=== PATIENT | male | born 1930 | race Caucasian/White ===

== ENCOUNTER 2017-01-22 05:43 | Day surgery (SDC) | payer OTHER ==
[~2017-01-22] VITALS: Ht 182.9 cm; Wt 102.0 kg
[~2017-01-22 05:43] MED LIST: ACET-1600 PO; AMLO10TA2 PO; AMLO2.5T PO; AMLO2.5T2 PO; AMLO5TAB2 PO; ASCO500T8 PO; ASPI325T80 PO; CIPR500T87 PO; LATA2.5D3 EACHEYE; LOSA1TAB16 PO; LOSA50TA6 PO; MULT-658 PO; OXYC-302 PO; TAMS-11 PO
[2017-01-22 06:02] VITALS: BP 159/77
[2017-01-22] MEDS ORDERED: LACTATED RINGERS 1,000 ML IV SCH (06:04)
[2017-01-22] MEDS ORDERED: SODIUM CHLORIDE 0.9% 1,000 ML IV SCH (06:28)
[2017-01-22] MEDS ORDERED: METOCLOPRAMIDE 5 MG/ML, 2ML ONE (07:02)
[2017-01-22] MEDS ORDERED: ONDANSETRON 2MG/ML, 2ML ONE (07:02)
[2017-01-22] MEDS ORDERED: PROPOFOL 10 MG/ML, 20ML ONE (07:02)
[2017-01-22] MEDS ORDERED: DEXAMETHASONE 4 MG/ML, 1ML ONE (07:02)
[2017-01-22] MEDS ORDERED: FENTANYL PF 100 MCG/2ML ONE ×3 (07:06→08:17)
[2017-01-22] MEDS ORDERED: METOPROLOL 1 MG/ML, 5ML IV PRN (07:30)
[2017-01-22] MEDS ORDERED: LABETALOL 5MG/ML, 20ML IV PRN (07:30)
[2017-01-22] MEDS ORDERED: HYDROmorphone 1 MG/ML, 1ML IV PRN (07:30)
[2017-01-22] MEDS ORDERED: ACETAMINOPHEN 325 MG TABLET PO PRN (07:30)
[2017-01-22] MEDS ORDERED: ALBUTEROL SULFATE 2.5 MG/3 ML NPPB PRN (07:30)
[2017-01-22] MEDS ORDERED: hydrALAzine 20 MG/ML, 1ML IV PRN (07:30)
[2017-01-22] MEDS ORDERED: ONDANSETRON 2MG/ML, 2ML IVPush PRN (07:30)
[2017-01-22] MEDS ORDERED: OXYcodone 5 MG/5 ML ORAL.SOL UDC PO PRN (07:30)
[2017-01-22] MEDS ORDERED: EPHEDRINE 50 MG/ML, 1ML IVPush PRN (07:30)
[2017-01-22] MEDS ORDERED: OMNIPAQUE 350 MG/ML, 50 ML BOTTLE INJ ONE (07:46)
[2017-01-22] MEDS ORDERED: PHENAZOPYRIDINE 200 MG TABLET PO PRN (08:00)
[2017-01-22] MEDS ORDERED: KETOROLAC 30 MG/1 ML IV PRN (08:00)
[2017-01-22] MEDS ORDERED: OPIUM/BELLADONNA SUPP.RECT 16.2-60 MG PR PRN (08:00)
[2017-01-22] MEDS ORDERED: ONDANSETRON 2MG/ML, 2ML IV PRN (08:00)
[2017-01-22] MEDS ORDERED: OXYcodone/APAP 5/325MG TABLET PO PRN (08:00)
[2017-01-22] MEDS ORDERED: OXYcodone 5 MG/5 ML ORAL.SOL UDC ONE (08:17)
[2017-01-22] MEDS: FENTANYL PF 100 MCG/2ML IV PRN ×2 (08:21→08:36)
[2017-01-22] MEDS ORDERED: PHENAZOPYRIDINE 200 MG TABLET ONE (08:22)
[2017-01-22] MEDS ORDERED: KETOROLAC 30 MG/1 ML ONE (08:25)
== END 2017-01-22 14:10 | disposition home or self-care (01) ==
LOC: OUT 05:43
PROVIDERS: ATTEND Urology
DX: C67.6 Malignant neoplasm of ureteric orifice (principal); N13.5 Crossing vessel and stricture of ureter without hydronephrosis; I12.9 Hypertensive chronic kidney disease with stage 1 through stage 4 chronic kidney disease, or unspecified chronic kidney disease; N18.9 Chronic kidney disease, unspecified; Z46.6 Encounter for fitting and adjustment of urinary device; N40.1 Benign prostatic hyperplasia with lower urinary tract symptoms; N13.8 Other obstructive and reflux uropathy; Z98.49 Cataract extraction status, unspecified eye; Z96.1 Presence of intraocular lens; Z87.891 Personal history of nicotine dependence; Z83.3 Family history of diabetes mellitus; Z82.49 Family history of ischemic heart disease and other diseases of the circulatory system; Z84.1 Family history of disorders of kidney and ureter; Z82.0 Family history of epilepsy and other diseases of the nervous system
CPT/HCPCS: 52234; 52332; 74420; 88305; C1726; C1769; C2617; J1100; J1885; J2405; J2704; J2765; J3010; J7030; Q9967

== ENCOUNTER → 2017-02-24 | Outpatient (CLI) | payer OTHER | END | disposition home or self-care (01) | LOC: PETCFH 08:27 | PROVIDERS: ATTEND Urology | DX: C67.0 Malignant neoplasm of trigone of bladder (principal); C66.9 Malignant neoplasm of unspecified ureter; I25.10 Atherosclerotic heart disease of native coronary artery without angina pectoris; R59.9 Enlarged lymph nodes, unspecified; J43.2 Centrilobular emphysema | CPT/HCPCS: 78815; A9552 ==

== ENCOUNTER → 2017-03-03 | Outpatient (CLI) | payer OTHER | END | disposition home or self-care (01) | LOC: PETCFH 09:25 | PROVIDERS: ATTEND Urology | DX: C66.9 Malignant neoplasm of unspecified ureter (principal); C67.0 Malignant neoplasm of trigone of bladder | CPT/HCPCS: 78306; A9503 ==

== ENCOUNTER → 2017-04-30 | Outpatient (CLI) | payer OTHER ==
[~2017-04-30] MED LIST changes: +DORZ10DR3 LEFTEYE
[2017-04-30 11:48] LABS: PATH.CAST-FLAG NOT PRESENT; SPERM-FLAG NOT PRESENT; SRC-FLAG NOT PRESENT; XTAL-FLAG NOT PRESENT; YLC-FLAG NOT PRESENT
[2017-04-30 12:05] LABS: ASPARTATE AMINO TRANSFERASE 10 U/L (15-37); BLOOD UREA NITROGEN 37 mg/dL (7-18)
== END | disposition home or self-care (01) ==
LOC: STAR 10:18
PROVIDERS: ATTEND Urology
DX: Z01.818 Encounter for other preprocedural examination (principal); C67.9 Malignant neoplasm of bladder, unspecified
CPT/HCPCS: 36415; 80053; 81001; 85025; 87086; 93005

== ENCOUNTER 2017-05-13 10:35 | Inpatient (IN) | payer OTHER ==
[~2017-05-13] VITALS: Ht 182.9 cm; Wt 96.0 kg
[2017-05-13] MEDS ORDERED: LACTATED RINGERS 1,000 ML IV SCH (10:59)
[2017-05-13] MEDS ORDERED: THROMBIN 5,000 UNIT VIAL TP ONE (11:56)
[2017-05-13] MEDS ORDERED: MIDAZOLAM 1 MG/ML, 2ML ONE (12:29)
[2017-05-13] MEDS ORDERED: HYDROmorphone 1 MG/ML, 1ML ONE (12:29)
[2017-05-13] MEDS ORDERED: FENTANYL PF 250 MCG/5ML ONE (12:29)
[2017-05-13] MEDS ORDERED: ALBUMIN HUMAN 5% 500 ML ONE (13:05)
[2017-05-13] MEDS ORDERED: GLYCOPYRROLATE 0.2MG/1ML ONE (13:07)
[2017-05-13] MEDS ORDERED: PROPOFOL 10 MG/ML, 20ML ONE (13:07)
[2017-05-13] MEDS ORDERED: ONDANSETRON 2MG/ML, 2ML ONE (13:07)
[2017-05-13] MEDS ORDERED: NEOSTIGMINE 1 MG/ML, 10ML ONE (13:07)
[2017-05-13] MEDS ORDERED: ROCURONIUM 10 MG/ML ONE (13:07)
[2017-05-13] MEDS ORDERED: DEXAMETHASONE 4 MG/ML, 1ML ONE (13:07)
[2017-05-13] MEDS ORDERED: PHENYLEPHRINE 10 MG/ML ONE (13:07)
[2017-05-13] MEDS ORDERED: SUCCINYLCHOLINE 20 MG/ML, 10ML ONE (13:07)
[2017-05-13] MEDS ORDERED: OMNIPAQUE 350 MG/ML, 50 ML BOTTLE IV ONE (13:45)
[2017-05-13] MEDS ORDERED: OMNIPAQUE 350 MG/ML, 50 ML BOTTLE ONE (14:14)
[2017-05-13] MEDS ORDERED: BUPIVACAINE 0.25% ONE (14:27)
[2017-05-13] MEDS ORDERED: BUPIVACAINE/PF-EPI 0.5% 1:200K ONE (18:51)
[2017-05-13] MEDS ORDERED: BUPIVACAINE/PF 0.25% ONE (18:52)
[2017-05-13] MEDS ORDERED: HYDROmorphone 1 MG/ML, 1ML IV PRN ×2 (19:00→22:00)
[2017-05-13] MEDS ORDERED: FENTANYL PF 100 MCG/2ML IV PRN (19:00)
[2017-05-13] MEDS ORDERED: MIDAZOLAM 1 MG/ML, 2ML IV PRN (19:00)
[2017-05-13] MEDS ORDERED: hydrALAzine 20 MG/ML, 1ML IV PRN (19:00)
[2017-05-13] MEDS ORDERED: ONDANSETRON 2MG/ML, 2ML IVPush PRN (19:00)
[2017-05-13] MEDS ORDERED: ALBUTEROL/IPRATROPIUM 2.5MG/0.5MG, 3 ML NPPB PRN (19:00)
[2017-05-13] MEDS ORDERED: LABETALOL 5MG/ML, 20ML IV PRN (19:00)
[2017-05-13] MEDS ORDERED: EPHEDRINE 50 MG/ML, 1ML IVPush PRN ×2 (19:00→22:00)
[2017-05-13] MEDS ORDERED: MEPERIDINE/PF 25MG/0.5ML IVPush PRN (19:00)
[2017-05-13] MEDS ORDERED: PROMETHAZINE 25 MG/ML, 1ML IV PRN (19:00)
[2017-05-13] MEDS ORDERED: FENTANYL PF 100 MCG/2ML ONE (19:38)
[2017-05-13] MEDS: HYDROmorphone 5 MG, BUPIVACAINE/PF 0.5%, 30ML 62.5 ML in SODIUM CHLORIDE 0.9% 182.5 ML EPIDCONT SCH (19:57)
[2017-05-13] MEDS ORDERED: NALBUPHINE 10 MG/ML, 1ML IV PRN (22:00)
[2017-05-13] MEDS ORDERED: NALOXONE 0.4 MG/ML, 1ML IV PRN (22:00)
[2017-05-13] MEDS ORDERED: HEPARIN 5,000 UNITS/ML, 1ML SQ SCH (22:00)
[2017-05-13] MEDS ORDERED: ONDANSETRON 2MG/ML, 2ML IV PRN (22:00)
[2017-05-13] MEDS ORDERED: DO NOT GIVE MC SCH (22:00)
[2017-05-13] MEDS: POTASSIUM CHLORIDE 20 MEQ in D5%-0.45% NACL 1,000 ML IV SCH (22:13)
[2017-05-13] MEDS: CEFTRIAXONE PMX 2GM/50ML 50 ML IV SCH (22:34)
[2017-05-14 02:41] VITALS: BP 117/64
[2017-05-14] MEDS: POTASSIUM CHLORIDE 20 MEQ in D5%-0.45% NACL 1,000 ML IV SCH ×3 (06:40→23:40)
[2017-05-14 06:44] LABS: BLOOD UREA NITROGEN 31 mg/dL (7-18)
[2017-05-14 07:25] VITALS: BP 108/62
[2017-05-14] MEDS: LOSARTAN 50MG TABLET PO SCH (08:37)
[2017-05-14] MEDS: HYDROCHLOROTHIAZIDE 12.5 MG CAPSULE PO SCH (08:38)
[2017-05-14] MEDS: DORZOLAMIDE OPHTH 2%, 10ML LEFTEYE SCH ×2 (08:38→22:46)
[2017-05-14] MEDS ORDERED: HEPARIN 5,000 UNITS/ML, 1ML SQ SCH ×2 (13:00→18:00)
[2017-05-14] MEDS ORDERED: DO NOT GIVE MC SCH (13:04)
[2017-05-14] MEDS: HEPARIN 5,000 UNITS/ML, 1ML SQ SCH ×2 (13:31→22:21)
[2017-05-14 14:12] VITALS: BP 120/57
[2017-05-14 19:06] VITALS: BP 131/66
[2017-05-14] MEDS: HYDROmorphone 5 MG, BUPIVACAINE/PF 0.5%, 30ML 62.5 ML in SODIUM CHLORIDE 0.9% 182.5 ML EPIDCONT SCH (21:03)
[2017-05-14] MEDS: AMLODIPINE 5 MG TABLET PO SCH (22:21)
[2017-05-14] MEDS: CEFTRIAXONE PMX 2GM/50ML 50 ML IV SCH (22:21)
[2017-05-14] MEDS: LATANOPROST OPHTH 0.005%, 2.5ML EACHEYE SCH (22:46)
[2017-05-15 00:14] VITALS: BP 141/62
[2017-05-15 04:00] VITALS: BP 147/68
[2017-05-15 05:27] LABS: BLOOD UREA NITROGEN 27 mg/dL (7-18)
[2017-05-15] MEDS: HEPARIN 5,000 UNITS/ML, 1ML SQ SCH ×3 (06:14→22:37)
[2017-05-15] MEDS: POTASSIUM CHLORIDE 20 MEQ in D5%-0.45% NACL 1,000 ML IV SCH ×3 (06:47→22:34)
[2017-05-15 08:02] VITALS: BP 132/67
[2017-05-15] MEDS: DORZOLAMIDE OPHTH 2%, 10ML LEFTEYE SCH ×2 (10:01→21:48)
[2017-05-15] MEDS: LOSARTAN 50MG TABLET PO SCH (10:02)
[2017-05-15] MEDS: AMLODIPINE 5 MG TABLET PO SCH ×2 (10:02→21:48)
[2017-05-15] MEDS: HYDROCHLOROTHIAZIDE 12.5 MG CAPSULE PO SCH (10:02)
[2017-05-15] MEDS: BUPIVACAINE/PF 0.5%, 30ML 62.5 ML in SODIUM CHLORIDE 0.9% 187.5 ML EPIDCONT SCH (11:04)
[2017-05-15 13:28] VITALS: BP 133/75
[2017-05-15 19:24] VITALS: BP 131/78
[2017-05-15] MEDS: LATANOPROST OPHTH 0.005%, 2.5ML EACHEYE SCH (21:48)
[2017-05-15] MEDS: CEFTRIAXONE PMX 2GM/50ML 50 ML IV SCH (22:34)
[2017-05-15 23:28] VITALS: BP 123/70
[2017-05-16 02:31] VITALS: BP 151/82
[2017-05-16 05:45] LABS: BLOOD UREA NITROGEN 24 mg/dL (7-18)
[2017-05-16 06:33] VITALS: BP 132/78
[2017-05-16] MEDS: HEPARIN 5,000 UNITS/ML, 1ML SQ SCH ×3 (06:42→23:34)
[2017-05-16] MEDS: POTASSIUM CHLORIDE 20 MEQ in D5%-0.45% NACL 1,000 ML IV SCH ×3 (06:42→23:34)
[2017-05-16] MEDS: DORZOLAMIDE OPHTH 2%, 10ML LEFTEYE SCH ×2 (09:22→21:20)
[2017-05-16] MEDS: HYDROCHLOROTHIAZIDE 12.5 MG CAPSULE PO SCH (09:23)
[2017-05-16] MEDS: LOSARTAN 50MG TABLET PO SCH (09:23)
[2017-05-16] MEDS: BUPIVACAINE/PF 0.5%, 30ML 62.5 ML in SODIUM CHLORIDE 0.9% 187.5 ML EPIDCONT SCH (11:10)
[2017-05-16 12:24] VITALS: BP 153/85
[2017-05-16] MEDS: LATANOPROST OPHTH 0.005%, 2.5ML EACHEYE SCH (21:21)
[2017-05-16] MEDS: AMLODIPINE 5 MG TABLET PO SCH (21:22)
[2017-05-16 21:30] VITALS: BP 143/73
[2017-05-16] MEDS: CEFTRIAXONE PMX 2GM/50ML 50 ML IV SCH (22:56)
[2017-05-17 03:12] VITALS: BP 123/88
[2017-05-17 05:59] LABS: BLOOD UREA NITROGEN 20 mg/dL (7-18)
[2017-05-17] MEDS: HEPARIN 5,000 UNITS/ML, 1ML SQ SCH ×3 (06:43→22:36)
[2017-05-17] MEDS: HYDROCHLOROTHIAZIDE 12.5 MG CAPSULE PO SCH (08:42)
[2017-05-17] MEDS: DORZOLAMIDE OPHTH 2%, 10ML LEFTEYE SCH ×2 (08:42→22:37)
[2017-05-17] MEDS: POTASSIUM CHLORIDE 20 MEQ in D5%-0.45% NACL 1,000 ML IV SCH ×2 (08:43→18:20)
[2017-05-17] MEDS: LOSARTAN 50MG TABLET PO SCH (08:43)
[2017-05-17] MEDS ORDERED: BUPIVACAINE/PF 0.5%, 30ML 62.5 ML in SODIUM CHLORIDE 0.9% 187.5 ML EPIDCONT SCH (12:38)
[2017-05-17 14:42] VITALS: BP 119/72
[2017-05-17] MEDS ORDERED: POLYETHYLENE GLYCOL 17 GM PACKET NG PRN ×2 (18:00→20:00)
[2017-05-17] MEDS ORDERED: OXYcodone/APAP 5/325MG TABLET PO PRN (18:00)
[2017-05-17] MEDS ORDERED: BISACODYL 10 MG SUPP PR PRN ×2 (18:00→20:00)
[2017-05-17 19:20] VITALS: BP 128/76
[2017-05-17] MEDS ORDERED: DO NOT GIVE MC SCH (20:00)
[2017-05-17] MEDS: CEFTRIAXONE PMX 2GM/50ML 50 ML IV SCH (22:36)
[2017-05-17] MEDS: LATANOPROST OPHTH 0.005%, 2.5ML EACHEYE SCH (22:36)
[2017-05-17] MEDS: AMLODIPINE 5 MG TABLET PO SCH (22:36)
[2017-05-18] MEDS: POTASSIUM CHLORIDE 20 MEQ in D5%-0.45% NACL 1,000 ML IV SCH ×3 (01:23→22:29)
[2017-05-18 03:15] VITALS: BP 130/73
[2017-05-18] MEDS: HEPARIN 5,000 UNITS/ML, 1ML SQ SCH ×3 (05:14→23:00)
[2017-05-18 06:01] LABS: BLOOD UREA NITROGEN 18 mg/dL (7-18)
[2017-05-18] MEDS: HYDROCHLOROTHIAZIDE 12.5 MG CAPSULE PO SCH (08:46)
[2017-05-18] MEDS: DORZOLAMIDE OPHTH 2%, 10ML LEFTEYE SCH ×2 (08:47→22:30)
[2017-05-18] MEDS: LOSARTAN 50MG TABLET PO SCH (08:47)
[2017-05-18 14:00] VITALS: BP 130/71
[2017-05-18 20:08] VITALS: BP 117/73
[2017-05-18] MEDS: AMLODIPINE 5 MG TABLET PO SCH (22:28)
[2017-05-18] MEDS: CEFTRIAXONE PMX 2GM/50ML 50 ML IV SCH (22:28)
[2017-05-18] MEDS: LATANOPROST OPHTH 0.005%, 2.5ML EACHEYE SCH (22:29)
[2017-05-19 01:18] VITALS: BP 118/67
[2017-05-19] MEDS: POTASSIUM CHLORIDE 20 MEQ in D5%-0.45% NACL 1,000 ML IV SCH ×3 (01:20→15:42)
[2017-05-19 05:06] LABS: BLOOD UREA NITROGEN 21 mg/dL (7-18)
[2017-05-19] MEDS: HEPARIN 5,000 UNITS/ML, 1ML SQ SCH ×3 (06:44→23:11)
[2017-05-19 07:31] VITALS: BP 120/70
[2017-05-19] MEDS: HYDROCHLOROTHIAZIDE 12.5 MG CAPSULE PO SCH (08:29)
[2017-05-19] MEDS: LOSARTAN 50MG TABLET PO SCH (08:30)
[2017-05-19] MEDS: DORZOLAMIDE OPHTH 2%, 10ML LEFTEYE SCH ×2 (08:30→21:21)
[2017-05-19 13:37] VITALS: BP 92/57
[2017-05-19 19:25] VITALS: BP 119/65
[2017-05-19] MEDS: LATANOPROST OPHTH 0.005%, 2.5ML EACHEYE SCH (21:21)
[2017-05-19] MEDS: AMLODIPINE 5 MG TABLET PO SCH (21:21)
[2017-05-19] MEDS: CEFTRIAXONE PMX 2GM/50ML 50 ML IV SCH (23:11)
[2017-05-20] MEDS: POTASSIUM CHLORIDE 20 MEQ in D5%-0.45% NACL 1,000 ML IV SCH ×2 (01:44→10:42)
[2017-05-20 01:51] VITALS: BP 128/73
[2017-05-20 06:02] LABS: ASPARTATE AMINO TRANSFERASE 35 U/L (15-37); BLOOD UREA NITROGEN 20 mg/dL (7-18)
[2017-05-20] MEDS: HEPARIN 5,000 UNITS/ML, 1ML SQ SCH (06:20)
[2017-05-20 07:46] VITALS: BP 119/74
[2017-05-20] MEDS: HYDROCHLOROTHIAZIDE 12.5 MG CAPSULE PO SCH (09:01)
[2017-05-20] MEDS: LOSARTAN 50MG TABLET PO SCH (09:01)
[2017-05-20] MEDS: DORZOLAMIDE OPHTH 2%, 10ML LEFTEYE SCH (09:01)
[2017-05-20 13:17] VITALS: BP 102/58
[2017-05-20] MEDS ORDERED: OXYC-302 PO (13:37)
== END 2017-05-20 18:33 | disposition home health service (06) | DRG 654 ==
LOC: ORIP 10:35 → 4NOR 20:55
PROVIDERS: ADMIT Urology; ATTEND Urology
PROC: 0VT00ZZ Resection of Prostate, Open Approach (ICD-10-PCS; principal; 2017-05-18)
PROC: 0TTB0ZZ Resection of Bladder, Open Approach (ICD-10-PCS; 2017-05-18)
PROC: 07BC0ZZ Excision of Pelvis Lymphatic, Open Approach (ICD-10-PCS; 2017-05-18)
PROC: 0DTJ0ZZ Resection of Appendix, Open Approach (ICD-10-PCS; 2017-05-18)
PROC: 0TP98DZ Removal of Intraluminal Device from Ureter, Via Natural or Artificial Opening Endoscopic (ICD-10-PCS; 2017-05-18)
PROC: 0T778ZZ Dilation of Left Ureter, Via Natural or Artificial Opening Endoscopic (ICD-10-PCS; 2017-05-18)
DX: C67.9 Malignant neoplasm of bladder, unspecified (principal); N13.8 Other obstructive and reflux uropathy; N13.5 Crossing vessel and stricture of ureter without hydronephrosis; Z90.6 Acquired absence of other parts of urinary tract; N40.1 Benign prostatic hyperplasia with lower urinary tract symptoms; I12.9 Hypertensive chronic kidney disease with stage 1 through stage 4 chronic kidney disease, or unspecified chronic kidney disease; E11.22 Type 2 diabetes mellitus with diabetic chronic kidney disease; N18.9 Chronic kidney disease, unspecified; Z79.899 Other long term (current) drug therapy
CPT/HCPCS: 36415; 74420; 80048; 80053; 85018; 85025; 86850; 86900; 88305; 88309; 88331; C1726; C1729; J0696; J1100; J1170; J1644; J2250; J2405; J2704; J2710; J3010; J3480; J3490; P9045; Q9967; C1758; C1760; C1765; C2617; J0330; J2370; J7050; J7120

== ENCOUNTER → 2017-05-29 | Outpatient (CLI) | payer OTHER ==
[~2017-05-29] MED LIST changes: +CEFD300C37 PO
== END | disposition home or self-care (01) ==
LOC: WOUND 13:07
PROVIDERS: ATTEND Physician Assistant
DX: N99.89 Other postprocedural complications and disorders of genitourinary system (principal); N39.8 Other specified disorders of urinary system; I10 Essential (primary) hypertension; H40.9 Unspecified glaucoma; E78.5 Hyperlipidemia, unspecified; G62.9 Polyneuropathy, unspecified; E11.22 Type 2 diabetes mellitus with diabetic chronic kidney disease; I12.9 Hypertensive chronic kidney disease with stage 1 through stage 4 chronic kidney disease, or unspecified chronic kidney disease; N18.4 Chronic kidney disease, stage 4 (severe); Z90.6 Acquired absence of other parts of urinary tract; Z87.891 Personal history of nicotine dependence; Z68.28 Body mass index [BMI] 28.0-28.9, adult; Z85.51 Personal history of malignant neoplasm of bladder; Z79.899 Other long term (current) drug therapy
CPT/HCPCS: 99213

== ENCOUNTER 2017-10-29 12:34 | Emergency (ER) | payer OTHER ==
[~2017-10-29] VITALS: Ht 182.9 cm; Wt 94.8 kg
[~2017-10-29 12:34] MED LIST changes: -LOSA1TAB16 PO; +LOSA1TAB19 PO
[2017-10-29 14:07] LABS: HEMATOCRIT 40.9 % (39.2-51.8); HEMOGLOBIN 13.4 g/dL (13.7-18.0); WHITE BLOOD COUNT 9.7 x10^3/uL (3.4-10)
[2017-10-29 14:15] LABS: ASPARTATE AMINO TRANSFERASE 16 U/L (15-37); BLOOD UREA NITROGEN 52 mg/dL (7-18)
[2017-10-29 15:15] LABS: PATH.CAST-FLAG NOT PRESENT; SPERM-FLAG NOT PRESENT; SRC-FLAG NOT PRESENT; XTAL-FLAG NOT PRESENT; YLC-FLAG NOT PRESENT
[2017-10-29 15:51] VITALS: BP 181/106
== END 2017-10-29 15:55 | disposition home or self-care (01) ==
LOC: ED 15:07
DX: R41.82 Altered mental status, unspecified (principal); N30.00 Acute cystitis without hematuria; I10 Essential (primary) hypertension; Z87.891 Personal history of nicotine dependence
CPT/HCPCS: 36415; 70450; 71010; 80053; 81001; 85025; 87077; 87086; 87186; 93005; 99285